=== PATIENT | female | born 1980 | race Hispanic/Latino ===

== ENCOUNTER 2022-02-24 00:55 | Emergency (ER) | payer SELFPAY ==
[2022-02-24] MEDS ORDERED: Ondansetron PF 4 MG/2 ML Vial ONE (03:31)
== END 2022-02-24 02:50 | disposition home or self-care (01) ==
LOC: CSHERS 00:55
DX: O03.9 Complete or unspecified spontaneous abortion without complication (principal); Z3A.00 Weeks of gestation of pregnancy not specified
CPT/HCPCS: 76856; 96374; J2405